=== PATIENT | male | born 1955 | race Caucasian/White ===

== ENCOUNTER 2018-06-16 20:28 | Emergency (ER) | payer MEDICARE ==
[~2018-06-16 20:28] MED LIST: NAPROXEN500 MG PO; NORCO 325 MG-51 TA1 PO; OMEPRAZOLE20 MG PO; PRILOSEC 20MG20 MG PO; ZOFRAN4 MG PO
[2018-06-16] MEDS ORDERED: NORCO 325 MG-51 TA1 PO (21:51)
[2018-06-16 22:06] VITALS: BP 158/81
== END 2018-06-16 22:06 | disposition home or self-care (01) ==
LOC: ED 20:28
DX: S20.211A Contusion of right front wall of thorax, initial encounter (principal); S20.311A Abrasion of right front wall of thorax, initial encounter; W19.XXXA Unspecified fall, initial encounter; Y99.0 Civilian activity done for income or pay; Z23 Encounter for immunization; I10 Essential (primary) hypertension; K21.0 Gastro-esophageal reflux disease with esophagitis; F79 Unspecified intellectual disabilities; Z79.899 Other long term (current) drug therapy
CPT/HCPCS: 90715; J1885

== ENCOUNTER 2019-10-19 10:01 | Emergency (ER) | payer MEDICARE ==
[2019-10-19 13:32] LABS: HEMATOCRIT 44.4 % (42.0-52.0); MEAN CELL VOLUME 85 fl (78-100); MEAN CORPUSCULAR HEMOGLOBIN 31 pg (27-31); MEAN CORPUSCULAR HGB CONC 36 g/dL (33-37); PLATELET COUNT 223 K/mm3 (130-400); RED BLOOD COUNT 5.22 M/mm3 (4.20-5.60); RED CELL DISTRIBUTION WIDTH 12.4 % (11.5-14.5); WHITE BLOOD COUNT 11.7 K/mm3 (4.8-10.8)
[2019-10-19 13:42] LABS: LYMPHOCYTE 9 % (20-51); MONOCYTE 6 % (3-10); NEUTROPHILS 83 % (42-75)
[2019-10-19 13:49] LABS: PROTHROMBIN TIME 9.3 SECONDS (9.0-12.0)
[2019-10-19 14:03] LABS: ALBUMIN 4.3 g/dL (3.4-4.8)
[2019-10-19 14:04] LABS: POTASSIUM 4.1 mmol/L (3.5-5.1); SODIUM 139 mmol/L (136-145)
[2019-10-19 14:05] LABS: CALCIUM 9.3 mg/dL (8.3-10.5)
[2019-10-19 14:06] LABS: GLUCOSE 106 mg/dL (75-110); TOTAL PROTEIN 6.8 g/dL (6.2-8.1)
[2019-10-19 14:07] LABS: CARBON DIOXIDE 25 mmol/L (23-31)
[2019-10-19 14:08] LABS: TOTAL BILIRUBIN 0.9 mg/dL (0.2-1.2)
[2019-10-19 14:11] LABS: AST-SGOT 18 U/L (5-34)
[2019-10-19 14:12] LABS: ALT/SGPT 16 U/L (0-55)
[2019-10-19 14:19] LABS: TROPONIN-I < 0.03 ng/mL (<0.030)
[2019-10-19] MEDS ORDERED: CEPHALEXIN500 M1 PO (15:57)
[2019-10-19 16:25] VITALS: BP 161/94
== END 2019-10-19 16:40 | disposition home or self-care (01) ==
LOC: ED 10:01
PROVIDERS: Family Medicine
DX: S01.412A Laceration without foreign body of left cheek and temporomandibular area, initial encounter (principal); W19.XXXA Unspecified fall, initial encounter; Y92.59 Other trade areas as the place of occurrence of the external cause
CPT/HCPCS: A4216; J0690; J2060; J3010

== ENCOUNTER → 2019-10-20 | Outpatient (CLI) | payer MEDICARE ==
[~2019-10-20] VITALS: Ht 172.7 cm; Wt 62.7 kg
[~2019-10-20] MED LIST changes: +CEPHALEXIN500 M1 PO
[2019-10-20 13:41] VITALS: BP 147/97
== END ==
LOC: AMSURD 13:25
DX: Z48.00 Encounter for change or removal of nonsurgical wound dressing (principal)

== ENCOUNTER → 2019-10-27 | Outpatient (CLI) | payer MEDICARE ==
[2019-10-20 13:41] VITALS: BP 147/97
== END ==
LOC: AMSURD 13:47
DX: Z48.02 Encounter for removal of sutures (principal)

== ENCOUNTER → 2019-10-31 | Outpatient (CLI) | payer MEDICARE ==
[2019-10-20 13:41] VITALS: BP 147/97
== END ==
LOC: AMSURD 14:58
DX: Z48.02 Encounter for removal of sutures (principal)

== ENCOUNTER 2020-06-05 14:18 | Emergency (ER) | payer MEDICARE ==
[~2020-06-05] VITALS: Ht 177.8 cm; Wt 62.4 kg
[2020-06-05 15:08] LABS: HEMATOCRIT 42.2 % (42.0-52.0); MEAN CELL VOLUME 84 fl (78-100); MEAN CORPUSCULAR HEMOGLOBIN 30 pg (27-31); MEAN CORPUSCULAR HGB CONC 36 g/dL (33-37); MEAN PLATELET VOLUME 10.1 fl (7.4-10.4); PLATELET COUNT 208 K/mm3 (130-400); RED BLOOD COUNT 5.05 M/mm3 (4.20-5.60); RED CELL DISTRIBUTION WIDTH 12.3 % (11.5-14.5); WHITE BLOOD COUNT 8.8 K/mm3 (4.8-10.8)
[2020-06-05 15:11] LABS: LYMPHOCYTE 10 % (20-51); MONOCYTE 5 % (3-10); NEUTROPHILS 85 % (42-75)
[2020-06-05] MEDS ORDERED: OMEPRAZOLE40 MG PO (15:13)
[2020-06-05 15:15] LABS: ALBUMIN 4.2 g/dL (3.4-4.8); POTASSIUM 3.6 mmol/L (3.5-5.1)
[2020-06-05 15:17] LABS: CALCIUM 8.9 mg/dL (8.3-10.5)
[2020-06-05 15:18] LABS: TOTAL PROTEIN 6.5 g/dL (6.2-8.1)
[2020-06-05 15:20] LABS: TOTAL BILIRUBIN 1.3 mg/dL (0.2-1.2)
[2020-06-05 15:21] LABS: D-DIMER 0.14 mg/L FEU (0.15-0.50)
[2020-06-05 15:59] LABS: ERYTHROCYTE SEDIMENTATION RATE 5 mm/hr (0-20)
[2020-06-05 16:30] LABS: URINE APPEARANCE CLEAR; URINE BILIRUBIN NEGATIVE (NEGATIVE); URINE BLOOD NEGATIVE (NEGATIVE); URINE COLOR YELLWO; URINE GLUCOSE NEGATIVE (NEGATIVE); URINE KETONE 1+ (NEGATIVE); URINE LEUKOCYTE ESTERASE NEGATIVE (NEGATIVE); URINE NITRATE NEGATIVE (NEGATIVE); URINE PROTEIN(semi-quant) TRACE mg/dL (NEGATIVE); URINE UROBILINOGEN NORMAL (NORMAL)
[2020-06-05 18:41] VITALS: BP 162/89
== END 2020-06-05 18:42 | disposition short-term general hospital (02) ==
LOC: ED 14:18
PROVIDERS: Physician Assistant
DX: R07.9 Chest pain, unspecified (principal); K21.9 Gastro-esophageal reflux disease without esophagitis; Z20.828 Contact with and (suspected) exposure to other viral communicable diseases; Z88.0 Allergy status to penicillin; Z79.899 Other long term (current) drug therapy
CPT/HCPCS: J1885; J2405; J7120